=== PATIENT | female | born 1990 | race Caucasian/White ===

== ENCOUNTER 2018-07-01 10:29 | Emergency (ER) | payer OTHER ==
[~2018-07-01] VITALS: Ht 165.1 cm; Wt 65.9 kg
[~2018-07-01 10:29] MED LIST: FLUT110HFA IH
[2018-07-01] MEDS ORDERED: ALBU8.5H8 IH (10:52)
[2018-07-01] MEDS ORDERED: LANS30 PO (10:52)
[2018-07-01 12:40] VITALS: BP 118/67
== END 2018-07-01 12:49 | disposition home or self-care (01) ==
LOC: EMS 10:31
DX: R03.0 Elevated blood-pressure reading, without diagnosis of hypertension (principal); J45.909 Unspecified asthma, uncomplicated; Z76.0 Encounter for issue of repeat prescription